=== PATIENT | female | born 1965 | race American Indian/Alaskan Native ===

== ENCOUNTER 2017-12-13 17:35 | Emergency (ER) | payer OTHER ==
[2017-12-13] MEDS ORDERED: Ketorolac 60 MG/2 ML SDV IM ONE (17:48)
--- NOTE | 2017-12-13 17:50 | EDM.PDOC ---
ED HPI GENERAL MEDICAL PROBLEM - General Stated Complaint: RIGHT ANKLE Time Seen by Provider: 12/13/17 17:35 Source of Information: Reports: Patient, Family History Limitations: Reports: No Limitations - History of Present Illness INITIAL COMMENTS - FREE TEXT/NARRATIVE: 52 y.o. NA female with a H/O HTN- came by EMS after she fell at home, slipping on ice and twisting her right ankle. Pt has pain and swelling of her right ankle and is not able to bear weight on her right leg. Pt denies any other injuries, no N/V/D or any other acute medical issues. BP 187/87 RR 18 Pulse ox 96% on RA Pulse 78 Temp 36.6 Onset Date: 12/13/17 Onset Time: 17:00 Duration: Minutes: Location: Reports: Lower Extremity, Right Quality: Reports: Ache, Burning, Dull, Pressure, Throbbing Severity: Moderate Improves with: Reports: Rest Worsens with: Reports: Movement Context: Reports: Trauma Right Ankle Pain Score (Numeric/FACES): 5 - Related Data Allergies Allergy/AdvReac Type Severity Reaction Status Date / Time diphenhydramine Allergy Hives Verified 12/13/17 18:10 [From Benadryl] Home Meds: Home Meds Atenolol 50 mg PO DAILY 12/13/17 [History] Triamterene [Dyrenium] 50 mg PO DAILY 12/13/17 [History] Past Medical History HEENT History: Reports: Impaired Vision Cardiovascular History: Reports: Hypertension - Past Surgical History HEENT Surgical History: Reports: Tonsillectomy Other GI Surgeries/Procedures: gastric bypass Social & Family History - Family History Family Medical History: Unobtainable - Tobacco Use Smoking Status *Q: Never Smoker - Caffeine Use Caffeine Use: Reports: Tea - Recreational Drug Use Recreational Drug Use: No Review of Systems - Review of Systems Review Of Systems: See Below Constitutional: Reports: No Symptoms Eyes: Reports: No Symptoms Ears: Reports: No Symptoms Nose: Reports: No Symptoms Mouth/Throat: Reports: No Symptoms Respiratory: Reports: No Symptoms Cardiovascular: Reports: No Symptoms GI/Abdominal: Reports: No Symptoms Genitourinary: Reports: No Symptoms Musculoskeletal: Reports: Joint Pain (right ankle) Skin: Reports: No Symptoms Neurological: Reports: No Symptoms Psychiatric: Reports: No Symptoms ED EXAM, GENERAL - Physical Exam Exam: See Below Exam Limited By: No Limitations General Appearance: Alert, WD/WN, Moderate Distress Eye Exam: Bilateral Eye: Normal Inspection Ears: Normal External Exam Ear Exam: Bilateral Ear: Auricle Normal Nose: Normal Inspection, Normal Mucosa Throat/Mouth: Normal Inspection, Normal Lips Head: Atraumatic, Normocephalic Neck: Normal Inspection, Supple, Non-Tender, Full Range of Motion Respiratory/Chest: No Respiratory Distress Cardiovascular: Normal Peripheral Pulses, Regular Rate, Rhythm, No Edema Peripheral Pulses: 1+: Carotid (R) GI/Abdominal: Normal Bowel Sounds, Soft, Non-Tender (Female) Exam: Deferred Rectal (Female) Exam: Deferred Back Exam: Normal Inspection Extremities: Joint Swelling (right ankle) Neurological: Alert, Oriented, CN II-XII Intact, Normal Cognition Psychiatric: Normal Affect, Normal Mood Skin Exam: Warm, Dry, Intact, Normal Color, No Rash Lymphatic: No Adenopathy Course - Vital Signs Text/Narrative:: 52 y.o. NA female with a H/O HTN-(did not take her HTN meds) came by EMS after she fell at home, slipping on ice and twisting her right ankle. Pt has pain and swelling of her right ankle and is not able to bear weight on her right leg. Pt denies any other injuries, no N/V/D or any other acute medical issues. BP 187/ 87 RR 18 Pulse ox 96% on RA Pulse 78 Temp 36.6 PE: WNWD NA with right ankle pain and swelling Imaging: Trimaleolar Fx righ ankle, closed Tx: Ice percocet, Walking boot, crutches Reexam: Improved Plan: D/C with instructions Last Recorded V/S: Last Vital Signs Temp 36.4 C 12/13/17 17:35 Pulse 70 12/13/17 17:35 Resp 18 12/13/17 19:27 BP 189/82 H 12/13/17 19:27 Pulse Ox 100 12/13/17 19:27 - Orders/Labs/Meds Meds: Medications Discontinued Medications Generic Name Dose Route Start Last Admin Trade Name Freq PRN Reason Stop Dose Admin Hydrocodone Bitart/Acetaminophen 8 tab 12/13/17 19:36 Steele 325-5 Mg PO 12/13/17 19:37 .STK-MED ONE Ketorolac Tromethamine 60 mg 12/13/17 17:48 02/26/18 18:14 Toradol IM 12/13/17 17:49 60 mg ONETIME ONE Administration Departure - Departure Time of Disposition: 19:00 Disposition: Home, Self-Care 01 Condition: Good Clinical Impression: Trimalleolar fracture of ankle, closed Qualifiers: Encounter type: initial encounter Laterality: right Qualified Code(s): S82.851A - Displaced trimalleolar fracture of right lower leg, initial encounter for closed fracture - Discharge Information Instructions: Acetaminophen; Hydrocodone tablets or capsules, Ankle Fracture Referrals: PCP,None [Primary Care Provider] - Rogelio Salmeron DO [Physician] - Forms: ED Return to Work/School Form Additional Instructions: Rest, ICE and elevation, Please apply weight bearing as tolerated--keep your foot in boot when up, Orthopedic clinic will call you for appt this Wednesday with Dr. Salmeron. Please take the pain meds including Motrin as recommended, Please come back if your symptoms get worse acutely. Hydrocodone/Tylenol 1 tablet every 4 hours as needed for severe pain, may use Ibuprofen for mild to moderate pain.
[2017-12-13] MEDS ORDERED: Acetaminophen/HYDROcodone 325-5 MG Tab PO ONE (19:36)
[2017-12-13 20:08] VITALS: BP 189/82
--- NOTE | 2017-12-14 11:57 | CR ---
INDICATION: Rolled ankle, heard pop. RIGHT ANKLE: Three views of the right ankle revealed bimalleolar fracture subluxation with slight lateral shift of the talus with respect to the tibia. An oblique fracture through the distal fibula at the metaphysis is noted with approximately 4 mm lateral offset of the distal fracture fragment. There is some angulation medially at the fibular fracture site also. Medial malleolar fracture is mostly transverse with slight angulation medially at the fracture site, widening the fracture line medially. Large plantar calcaneal spur is noted with a tiny posterior calcaneal spur. Mild degenerative changes are noted at the talonavicular joint. IMPRESSION: 1. Bimalleolar fracture with subluxation - widening of the medial ankle mortise joint space. 2. Osteoarthritis. 3. Calcaneal spur. MTDD
== END 2017-12-13 19:51 | disposition home or self-care (01) ==
LOC: FB.ED 17:35
DX: S82.851A Displaced trimalleolar fracture of right lower leg, initial encounter for closed fracture (principal); I10 Essential (primary) hypertension; Z79.899 Other long term (current) drug therapy; Z88.8 Allergy status to other drugs, medicaments and biological substances; W00.0XXA Fall on same level due to ice and snow, initial encounter; Y92.009 Unspecified place in unspecified non-institutional (private) residence as the place of occurrence of the external cause
CPT/HCPCS: 73600; 96372; 99283; A9270; J1885